=== PATIENT | female | born 1990 | race Caucasian/White ===

== ENCOUNTER 2022-07-03 20:06 | Emergency (ER) | payer OTHER ==
[~2022-07-03] VITALS: Ht 157.5 cm; Wt 44.0 kg
[~2022-07-03 20:06] MED LIST: MACROBID 100 M100 MG PO
[2022-07-03] MEDS ORDERED: PROTONIX40 MG PO (22:01)
[2022-07-03] MEDS ORDERED: CARAFATE1 GM PO (22:01)
[2022-07-03] MEDS ORDERED: TRAMADOL HCL50 MG PO (22:01)
[2022-07-03 22:24] VITALS: BP 92/74
== END 2022-07-03 22:24 | disposition home or self-care (01) ==
LOC: ED 20:06
DX: K29.70 Gastritis, unspecified, without bleeding (principal); N75.0 Cyst of Bartholin's gland
CPT/HCPCS: 36415; 74177; 80053; 81001; 83690; 84703; 85025; A9270; C9113; J2270; J2405; J7030; Q9967